=== PATIENT | male | born 1990 | race Caucasian/White ===

== ENCOUNTER 2020-12-28 15:20 | Emergency (ER) | payer OTHER ==
[2020-12-28 15:48] VITALS: BMI 28.8
[2020-12-28] MEDS ORDERED: ACETAMINOPHEN 325 MG TABLET (FP) PO ONE (16:14)
[2020-12-28] MEDS ORDERED: ACETAMINOPHEN 325 MG TABLET (FP) ONE (16:22)
[2020-12-28 17:20] LABS: BASO % 0.3 % (0-2.0); EOS % 1.1 % (0-4.5); HEMOGLOBIN 14.7 GM/dL (11.7-16.9); LYMPH % 15.8 % (8-40); MCH 27.3 pg (25.7-33.7); MCHC 33.4 g/dl (32.0-35.9); MEAN CELL VOLUME 81.8 fl (80-96); MEAN PLT VOLUME 8.8 fl (7.5-11.1); MONO % 6.2 % (3.8-10.2); NEUT % 76.6 % (42.8-82.8); PLATELET COUNT 190 K/MM3 (134-434); RBC 5.38 M/mm3 (4.00-5.60); RDW 13.3 % (11.9-15.9)
[2020-12-28 17:43] LABS: CHLORIDE 106 mmol/L (98-107); SODIUM 139 mmol/L (136-145)
[2020-12-28 17:46] LABS: ALBUMIN 3.8 g/dl (3.4-5.0); ANION GAP 7 MMOL/L (8-16); CALCIUM 8.7 mg/dL (8.5-10.1); CO2 25 mmol/L (21-32); GLUCOSE,RANDOM 77 mg/dL (74-106)
[2020-12-28 17:47] LABS: BLOOD UREA NITROGEN 20.5 mg/dL (7-18)
[2020-12-28 17:49] LABS: SGOT/AST 18 U/L (15-37); SGPT/ALT 40 U/L (13-61)
[2020-12-28 17:51] LABS: BILIRUBIN,TOTAL 0.6 mg/dL (0.2-1); TOT PROT 7.1 g/dl (6.4-8.2)
[2020-12-28 17:52] LABS: ALK PHOS 63 U/L (45-117)
[2020-12-28 19:15] VITALS: BP 115/83; PULSE 82; TEMP 98.2
== END 2020-12-28 18:55 | disposition home or self-care (01) ==
LOC: JER 15:20
DX: R55 Syncope and collapse (principal); S00.83XA Contusion of other part of head, initial encounter; T50.Z95A Adverse effect of other vaccines and biological substances, initial encounter
CPT/HCPCS: 36415; 70450-TC; 71045-TC-FY; 72125-TC; 80053; 82550; 82553; 84484; 85025; 93005; 93010; 99285-25